=== PATIENT | female | born 1935 | race Native Hawaiian/Other Pacific Islander ===

== ENCOUNTER 2019-09-17 16:32 | Emergency (ER) | payer MEDICARE ==
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
[2019-09-17] MEDS ORDERED: Acetaminophen TAB* 325 MG PO ONE (17:42)
[2019-09-17] MEDS ORDERED: traMADol TAB* 50 MG PO ONE (19:13)
[2019-09-17 20:51] VITALS: BP 118/80
== END 2019-09-17 20:51 | disposition home or self-care (01) ==
LOC: ED 16:32
DX: S80.02XA Contusion of left knee, initial encounter (principal); S02.2XXA Fracture of nasal bones, initial encounter for closed fracture; S20.211A Contusion of right front wall of thorax, initial encounter; I10 Essential (primary) hypertension; G47.30 Sleep apnea, unspecified; K44.9 Diaphragmatic hernia without obstruction or gangrene; W19.XXXA Unspecified fall, initial encounter; Y92.9 Unspecified place or not applicable
CPT/HCPCS: 70450; 70486; 71250; 72125; 72192; 99283; A9270-GY